=== PATIENT | female | born 1955 | race Caucasian/White ===

== ENCOUNTER 2016-08-27 11:46 | Outpatient (RCR) | payer BC ==
[2016-08-27 10:28] LABS: MEAN CORPUSCULAR HEMOGLOBIN 27.1 PG (26.0-34.0); MEAN CORPUSCULAR HGB CONC 32.3 g/dL (31.0-37.0); MEAN CORPUSCULAR VOLUME 84 FL (80-100); MEAN PLATELET VOLUME 8.6 FL (6.0-9.5); PLATELET COUNT 308 10^3uL (150-450); WHITE BLOOD COUNT 1.61 10^3uL (4.0-11.0)
[2016-08-27 10:35] LABS: BAND NEUTROPHILS % 0 % (0-6); LYMPHOCYTES # 0.6 #; MONOCYTES % 4 % (3-11); SEGMENTED NEUTROPHILS % 56 % (51-67)
[2016-08-27 10:36] LABS: EOSINOPHILS % 0 % (0-4); RBC MORPH NORMAL (NORMAL); TOTAL CELLS COUNTED 100
[2016-08-27 10:58] LABS: ALBUMIN 4.1 g/dL (3.4-5.0); ANION GAP 13.5 MEQ/L (3-15); CALCULATED IONIZED CALCIUM 4.1 mg/dL (3.8-4.6); MAGNESIUM* 2.3 mg/dL (1.6-2.3); TOTAL PROTEIN 7.9 g/dL (6.4-8.5)
[2016-08-30 09:15] LABS: MEAN CORPUSCULAR HGB CONC 31.9 g/dL (31.0-37.0); MEAN CORPUSCULAR VOLUME 84 FL (80-100); MEAN PLATELET VOLUME 8.6 FL (6.0-9.5); PLATELET COUNT 257 10^3uL (150-450)
[2016-08-30 10:33] LABS: MEAN CORPUSCULAR HEMOGLOBIN 26.7 PG (26.0-34.0); WHITE BLOOD COUNT 1.26 10^3uL (4.0-11.0)
[2016-08-30 10:34] LABS: BAND NEUTROPHILS % 4 % (0-6); EOSINOPHILS % 4 % (0-4); LYMPHOCYTES # 0.6 #; MONOCYTES # 0.1 #; MONOCYTES % 14 % (3-11); RBC MORPH NORMAL (NORMAL); SEGMENTED NEUTROPHILS % 32 % (51-67); TOTAL CELLS COUNTED 100
[2016-08-30 10:47] LABS: ALBUMIN 4.4 g/dL (3.4-5.0); ANION GAP 17.8 MEQ/L (3-15); CALCULATED IONIZED CALCIUM 4.2 mg/dL (3.8-4.6); TOTAL PROTEIN 8.4 g/dL (6.4-8.5)
[2016-09-03 09:29] LABS: MEAN CORPUSCULAR HGB CONC 31.8 g/dL (31.0-37.0); MEAN CORPUSCULAR VOLUME 84 FL (80-100); MEAN PLATELET VOLUME 8.7 FL (6.0-9.5); PLATELET COUNT 175 10^3uL (150-450)
[2016-09-03 09:37] LABS: ALBUMIN 4.4 g/dL (3.4-5.0); ANION GAP 14.6 MEQ/L (3-15); MAGNESIUM* 2.4 mg/dL (1.6-2.3); TOTAL PROTEIN 7.4 g/dL (6.4-8.5)
[2016-09-03 10:05] LABS: MEAN CORPUSCULAR HEMOGLOBIN 26.6 PG (26.0-34.0); WHITE BLOOD COUNT 1.21 10^3uL (4.0-11.0)
[2016-09-03 10:26] LABS: ANISOCYTOSIS SLIGHT; BAND NEUTROPHILS % 0 % (0-6); EOSINOPHILS % 2 % (0-4); LYMPHOCYTES # 0.6 #; MONOCYTES # 0.1 #; MONOCYTES % 10 % (3-11); RBC MORPH SEE REFERENCE (NORMAL); SEGMENTED NEUTROPHILS % 38 % (51-67); TOTAL CELLS COUNTED 100
[2016-09-06 08:39] LABS: MEAN CORPUSCULAR HEMOGLOBIN 27.2 PG (26.0-34.0); MEAN CORPUSCULAR HGB CONC 32.2 g/dL (31.0-37.0); MEAN CORPUSCULAR VOLUME 84 FL (80-100); MEAN PLATELET VOLUME 8.7 FL (6.0-9.5); PLATELET COUNT 185 10^3uL (150-450); WHITE BLOOD COUNT 1.97 10^3uL (4.0-11.0)
[2016-09-06 08:50] LABS: ALBUMIN 4.2 g/dL (3.4-5.0); ANION GAP 14.9 MEQ/L (3-15); CALCULATED IONIZED CALCIUM 4.1 mg/dL (3.8-4.6); MAGNESIUM* 2.1 mg/dL (1.6-2.3)
[2016-09-06 09:24] LABS: BAND NEUTROPHILS % 0 % (0-6); EOSINOPHILS % 3 % (0-4); LYMPHOCYTES # 0.7 #; MONOCYTES # 0.1 #; MONOCYTES % 13 % (3-11); RBC MORPH NORMAL (NORMAL); SEGMENTED NEUTROPHILS % 50 % (51-67); TOTAL CELLS COUNTED 100
[2016-09-10 09:32] LABS: MEAN CORPUSCULAR HEMOGLOBIN 27.5 PG (26.0-34.0); MEAN CORPUSCULAR HGB CONC 32.6 g/dL (31.0-37.0); MEAN CORPUSCULAR VOLUME 84 FL (80-100); MEAN PLATELET VOLUME 8.2 FL (6.0-9.5); PLATELET COUNT 329 10^3uL (150-450); WHITE BLOOD COUNT 2.43 10^3uL (4.0-11.0)
[2016-09-10 09:55] LABS: BAND NEUTROPHILS % 0 % (0-6); EOSINOPHILS % 1 % (0-4); LYMPHOCYTES # 0.8 #; MONOCYTES # 0.2 #; MONOCYTES % 10 % (3-11)
[2016-09-10 09:56] LABS: RBC MORPH NORMAL (NORMAL); SEGMENTED NEUTROPHILS % 56 % (51-67); TOTAL CELLS COUNTED 100
[2016-09-10 10:11] LABS: ANION GAP 14.7 MEQ/L (3-15); CALCULATED IONIZED CALCIUM 4.4 mg/dL (3.8-4.6); MAGNESIUM* 2.2 mg/dL (1.6-2.3); TOTAL PROTEIN 6.9 g/dL (6.4-8.5)
[2016-09-17 10:49] LABS: MEAN CORPUSCULAR HEMOGLOBIN 27.8 PG (26.0-34.0); MEAN CORPUSCULAR HGB CONC 32.7 g/dL (31.0-37.0); MEAN CORPUSCULAR VOLUME 85 FL (80-100); MEAN PLATELET VOLUME 8.5 FL (6.0-9.5); PLATELET COUNT 527 10^3uL (150-450)
[2016-09-17 11:05] LABS: BAND NEUTROPHILS % 0 % (0-6); EOSINOPHILS % 1 % (0-4); LYMPHOCYTES # 0.9 #; MONOCYTES # 0.6 #; MONOCYTES % 16 % (3-11); SEGMENTED NEUTROPHILS % 59 % (51-67)
[2016-09-17 11:06] LABS: ANISOCYTOSIS MODERATE; RBC MORPH SEE REFERENCE (NORMAL); TOTAL CELLS COUNTED 100
[2016-09-17 11:11] LABS: ALBUMIN 4.3 g/dL (3.4-5.0); ANION GAP 17.4 MEQ/L (3-15); CALCULATED IONIZED CALCIUM 4.2 mg/dL (3.8-4.6); MAGNESIUM* 2.2 mg/dL (1.6-2.3); TOTAL PROTEIN 7.3 g/dL (6.4-8.5)
[2016-09-20 08:56] LABS: MEAN CORPUSCULAR HEMOGLOBIN 27.3 PG (26.0-34.0); MEAN CORPUSCULAR HGB CONC 32.1 g/dL (31.0-37.0); MEAN CORPUSCULAR VOLUME 85 FL (80-100); MEAN PLATELET VOLUME 8.6 FL (6.0-9.5); PLATELET COUNT 546 10^3uL (150-450); WHITE BLOOD COUNT 4.12 10^3uL (4.0-11.0)
[2016-09-20 09:22] LABS: BAND NEUTROPHILS % 0 % (0-6); EOSINOPHILS % 0 % (0-4); LYMPHOCYTES # 0.8 #; MONOCYTES # 0.7 #; MONOCYTES % 18 % (3-11); RBC MORPH NORMAL (NORMAL); SEGMENTED NEUTROPHILS % 62 % (51-67); TOTAL CELLS COUNTED 100
[2016-09-20 09:26] LABS: ALBUMIN 4.3 g/dL (3.4-5.0); ANION GAP 15.9 MEQ/L (3-15); CALCULATED IONIZED CALCIUM 4.2 mg/dL (3.8-4.6); MAGNESIUM* 2.3 mg/dL (1.6-2.3); TOTAL PROTEIN 7.5 g/dL (6.4-8.5)
[2016-09-24 09:55] LABS: BASOPHILS % (AUTO) 1 % (0-2); EOSINOPHILS # (AUTO) 0.1 10^3uL; EOSINOPHILS % (AUTO) 1 % (0-4); LYMPHOCYTES # (AUTO) 0.8 X10^3; MEAN CORPUSCULAR HEMOGLOBIN 27.8 PG (26.0-34.0); MEAN CORPUSCULAR HGB CONC 32.6 g/dL (31.0-37.0); MEAN CORPUSCULAR VOLUME 85 FL (80-100); MEAN PLATELET VOLUME 8.9 FL (6.0-9.5); MONOCYTES # (AUTO) 0.3 X10^3; MONOCYTES % (AUTO) 9 % (3-11); NEUTROPHILS # (AUTO) 2.5 X10^3; NEUTROPHILS % (AUTO) 68 % (51-67); PLATELET COUNT 506 10^3uL (150-450); WHITE BLOOD COUNT 3.73 10^3uL (4.0-11.0)
[2016-09-24 10:13] LABS: ALBUMIN 4.1 g/dL (3.4-5.0); ANION GAP 13.1 MEQ/L (3-15); CALCULATED IONIZED CALCIUM 4.1 mg/dL (3.8-4.6); MAGNESIUM* 2.1 mg/dL (1.6-2.3); TOTAL PROTEIN 7.3 g/dL (6.4-8.5)
[2016-09-27 12:16] LABS: BASOPHILS % (AUTO) 2 % (0-2); EOSINOPHILS % (AUTO) 1 % (0-4); LYMPHOCYTES # (AUTO) 0.9 X10^3; MEAN CORPUSCULAR HEMOGLOBIN 27.6 PG (26.0-34.0); MEAN CORPUSCULAR HGB CONC 32.4 g/dL (31.0-37.0); MEAN CORPUSCULAR VOLUME 85 FL (80-100); MEAN PLATELET VOLUME 8.6 FL (6.0-9.5); MONOCYTES # (AUTO) 0.2 X10^3; MONOCYTES % (AUTO) 5 % (3-11); NEUTROPHILS # (AUTO) 2.1 X10^3; NEUTROPHILS % (AUTO) 65 % (51-67); PLATELET COUNT 541 10^3uL (150-450); WHITE BLOOD COUNT 3.23 10^3uL (4.0-11.0)
[2016-09-27 12:29] LABS: ALBUMIN 4.5 g/dL (3.4-5.0); ANION GAP 15.6 MEQ/L (3-15); CALCULATED IONIZED CALCIUM 4.2 mg/dL (3.8-4.6); MAGNESIUM* 2.1 mg/dL (1.6-2.3); TOTAL PROTEIN 7.8 g/dL (6.4-8.5)
[2016-10-01 10:50] LABS: ALBUMIN 4.3 g/dL (3.4-5.0); ANION GAP 14.8 MEQ/L (3-15); CALCULATED IONIZED CALCIUM 4.1 mg/dL (3.8-4.6); MAGNESIUM* 2.2 mg/dL (1.6-2.3); TOTAL PROTEIN 7.4 g/dL (6.4-8.5)
[2016-10-01 11:00] LABS: BASOPHILS % (AUTO) 1 % (0-2); EOSINOPHILS % (AUTO) 1 % (0-4); LYMPHOCYTES # (AUTO) 0.7 X10^3; MEAN CORPUSCULAR HEMOGLOBIN 27.3 PG (26.0-34.0); MEAN CORPUSCULAR HGB CONC 31.7 g/dL (31.0-37.0); MEAN CORPUSCULAR VOLUME 86 FL (80-100); MEAN PLATELET VOLUME 8.9 FL (6.0-9.5); MONOCYTES # (AUTO) 0.1 X10^3; MONOCYTES % (AUTO) 4 % (3-11); NEUTROPHILS # (AUTO) 1.9 X10^3; NEUTROPHILS % (AUTO) 67 % (51-67); PLATELET COUNT 431 10^3uL (150-450); WHITE BLOOD COUNT 2.81 10^3uL (4.0-11.0)
[2016-10-04 10:41] LABS: MEAN CORPUSCULAR HGB CONC 32.8 g/dL (31.0-37.0); MEAN CORPUSCULAR VOLUME 85 FL (80-100); MEAN PLATELET VOLUME 8.8 FL (6.0-9.5); PLATELET COUNT 344 10^3uL (150-450); WHITE BLOOD COUNT 1.95 10^3uL (4.0-11.0)
[2016-10-04 11:02] LABS: ALBUMIN 4.4 g/dL (3.4-5.0); ANION GAP 16.1 MEQ/L (3-15); CALCULATED IONIZED CALCIUM 4.1 mg/dL (3.8-4.6); MAGNESIUM* 2.1 mg/dL (1.6-2.3); TOTAL PROTEIN 7.7 g/dL (6.4-8.5)
[2016-10-04 11:27] LABS: BAND NEUTROPHILS % 1 % (0-6); EOSINOPHILS % 1 % (0-4); LYMPHOCYTES # 0.8 #; MONOCYTES # 0.1 #; MONOCYTES % 5 % (3-11); SEGMENTED NEUTROPHILS % 49 % (51-67); TOTAL CELLS COUNTED 100
[2016-10-04 11:28] LABS: ANISOCYTOSIS SLIGHT; RBC MORPH SEE REFERENCE (NORMAL); STOMATOCYTES SLIGHT
[2016-10-08 10:55] LABS: MEAN CORPUSCULAR HEMOGLOBIN 28.2 PG (26.0-34.0); MEAN CORPUSCULAR HGB CONC 33.1 g/dL (31.0-37.0); MEAN CORPUSCULAR VOLUME 85 FL (80-100); MEAN PLATELET VOLUME 8.3 FL (6.0-9.5); PLATELET COUNT 216 10^3uL (150-450); WHITE BLOOD COUNT 1.84 10^3uL (4.0-11.0)
[2016-10-08 11:03] LABS: BAND NEUTROPHILS % 1 % (0-6); EOSINOPHILS % 0 % (0-4); LYMPHOCYTES # 0.9 #; MONOCYTES % 4 % (3-11); RBC MORPH NORMAL (NORMAL); SEGMENTED NEUTROPHILS % 42 % (51-67); TOTAL CELLS COUNTED 100
[2016-10-08 11:28] LABS: ALBUMIN 4.6 g/dL (3.4-5.0); ANION GAP 16.2 MEQ/L (3-15); CALCULATED IONIZED CALCIUM 3.9 mg/dL (3.8-4.6); MAGNESIUM* 2.3 mg/dL (1.6-2.3); TOTAL PROTEIN 8.4 g/dL (6.4-8.5)
[2016-10-15 08:56] LABS: MEAN CORPUSCULAR HGB CONC 32.6 g/dL (31.0-37.0); MEAN CORPUSCULAR VOLUME 86 FL (80-100); MEAN PLATELET VOLUME 8.2 FL (6.0-9.5); PLATELET COUNT 214 10^3uL (150-450); WHITE BLOOD COUNT 2.25 10^3uL (4.0-11.0)
[2016-10-15 09:07] LABS: ALBUMIN 4.3 g/dL (3.4-5.0); ANION GAP 16.1 MEQ/L (3-15); CALCULATED IONIZED CALCIUM 3.9 mg/dL (3.8-4.6); MAGNESIUM* 2.3 mg/dL (1.6-2.3); TOTAL PROTEIN 7.8 g/dL (6.4-8.5)
[2016-10-15 09:11] LABS: ANISOCYTOSIS SLIGHT; BAND NEUTROPHILS % 0 % (0-6); EOSINOPHILS % 1 % (0-4); LYMPHOCYTES # 0.7 #; MONOCYTES # 0.3 #; MONOCYTES % 15 % (3-11); RBC MORPH SEE REFERENCE (NORMAL); SEGMENTED NEUTROPHILS % 51 % (51-67); TOTAL CELLS COUNTED 100
[2016-10-22 12:09] LABS: BASOPHILS % (AUTO) 1 % (0-2); EOSINOPHILS % (AUTO) 1 % (0-4); LYMPHOCYTES # (AUTO) 0.9 X10^3; MEAN CORPUSCULAR HEMOGLOBIN 28.1 PG (26.0-34.0); MEAN CORPUSCULAR HGB CONC 32.6 g/dL (31.0-37.0); MEAN CORPUSCULAR VOLUME 86 FL (80-100); MEAN PLATELET VOLUME 8.4 FL (6.0-9.5); MONOCYTES # (AUTO) 0.3 X10^3; MONOCYTES % (AUTO) 9 % (3-11); NEUTROPHILS # (AUTO) 1.7 X10^3; NEUTROPHILS % (AUTO) 57 % (51-67); PLATELET COUNT 438 10^3uL (150-450); WHITE BLOOD COUNT 2.91 10^3uL (4.0-11.0)
[2016-10-22 12:50] LABS: ALBUMIN 4.1 g/dL (3.4-5.0); ANION GAP 15.7 MEQ/L (3-15); CALCULATED IONIZED CALCIUM 4.1 mg/dL (3.8-4.6); TOTAL PROTEIN 7.9 g/dL (6.4-8.5)
[2016-10-25 09:54] LABS: BASOPHILS % (AUTO) 2 % (0-2); EOSINOPHILS % (AUTO) 1 % (0-4); LYMPHOCYTES # (AUTO) 0.7 X10^3; MEAN CORPUSCULAR HEMOGLOBIN 28.5 PG (26.0-34.0); MEAN CORPUSCULAR HGB CONC 32.8 g/dL (31.0-37.0); MEAN CORPUSCULAR VOLUME 87 FL (80-100); MEAN PLATELET VOLUME 8.4 FL (6.0-9.5); MONOCYTES # (AUTO) 0.2 X10^3; MONOCYTES % (AUTO) 6 % (3-11); NEUTROPHILS # (AUTO) 1.8 X10^3; NEUTROPHILS % (AUTO) 65 % (51-67); PLATELET COUNT 560 10^3uL (150-450); WHITE BLOOD COUNT 2.77 10^3uL (4.0-11.0)
[2016-10-25 10:11] LABS: ALBUMIN 4.4 g/dL (3.4-5.0); CALCULATED IONIZED CALCIUM 4.3 mg/dL (3.8-4.6); MAGNESIUM* 2.1 mg/dL (1.6-2.3); TOTAL PROTEIN 8.3 g/dL (6.4-8.5)
[2016-10-29 11:35] LABS: BASOPHILS % (AUTO) 1 % (0-2); EOSINOPHILS % (AUTO) 1 % (0-4); LYMPHOCYTES # (AUTO) 0.6 X10^3; MEAN CORPUSCULAR HEMOGLOBIN 28.6 PG (26.0-34.0); MEAN CORPUSCULAR HGB CONC 32.8 g/dL (31.0-37.0); MEAN CORPUSCULAR VOLUME 87 FL (80-100); MEAN PLATELET VOLUME 8.4 FL (6.0-9.5); MONOCYTES # (AUTO) 0.2 X10^3; MONOCYTES % (AUTO) 5 % (3-11); NEUTROPHILS # (AUTO) 2.5 X10^3; NEUTROPHILS % (AUTO) 74 % (51-67); PLATELET COUNT 519 10^3uL (150-450); WHITE BLOOD COUNT 3.37 10^3uL (4.0-11.0)
[2016-10-29 11:54] LABS: ALBUMIN 4.2 g/dL (3.4-5.0); ANION GAP 14.8 MEQ/L (3-15); CALCULATED IONIZED CALCIUM 3.9 mg/dL (3.8-4.6); MAGNESIUM* 2.3 mg/dL (1.6-2.3); TOTAL PROTEIN 7.8 g/dL (6.4-8.5)
[2016-11-01 11:05] LABS: ALBUMIN 4.2 g/dL (3.4-5.0); ANION GAP 14.8 MEQ/L (3-15); CALCULATED IONIZED CALCIUM 4.3 mg/dL (3.8-4.6); MAGNESIUM* 2.2 mg/dL (1.6-2.3); TOTAL PROTEIN 7.6 g/dL (6.4-8.5)
[2016-11-01 12:46] LABS: MEAN CORPUSCULAR HEMOGLOBIN 28.9 PG (26.0-34.0); MEAN CORPUSCULAR HGB CONC 32.8 g/dL (31.0-37.0); MEAN CORPUSCULAR VOLUME 88 FL (80-100); PLATELET COUNT 493 10^3uL (150-450); WHITE BLOOD COUNT 2.14 10^3uL (4.0-11.0)
[2016-11-01 13:08] LABS: BAND NEUTROPHILS % 0 % (0-6); EOSINOPHILS % 2 % (0-4); LYMPHOCYTES # 0.8 #; MONOCYTES # 0.1 #; MONOCYTES % 6 % (3-11); SEGMENTED NEUTROPHILS % 54 % (51-67); TOTAL CELLS COUNTED 100
[2016-11-01 13:09] LABS: ANISOCYTOSIS SLIGHT; RBC MORPH SEE REFERENCE (NORMAL)
[2016-11-05 14:17] LABS: MEAN CORPUSCULAR HEMOGLOBIN 28.8 PG (26.0-34.0); MEAN CORPUSCULAR HGB CONC 33.1 g/dL (31.0-37.0); MEAN CORPUSCULAR VOLUME 87 FL (80-100); MEAN PLATELET VOLUME 8.2 FL (6.0-9.5); PLATELET COUNT 321 10^3uL (150-450); WHITE BLOOD COUNT 2.05 10^3uL (4.0-11.0)
[2016-11-05 14:34] LABS: ANISOCYTOSIS SLIGHT; BAND NEUTROPHILS % 0 % (0-6); EOSINOPHILS % 0 % (0-4); LYMPHOCYTES # 0.9 #; MONOCYTES # 0.2 #; MONOCYTES % 8 % (3-11); RBC MORPH SEE REFERENCE (NORMAL); SEGMENTED NEUTROPHILS % 48 % (51-67); TOTAL CELLS COUNTED 100
[2016-11-05 14:42] LABS: ALBUMIN 4.1 g/dL (3.4-5.0); ANION GAP 17.1 MEQ/L (3-15); CALCULATED IONIZED CALCIUM 4.3 mg/dL (3.8-4.6); MAGNESIUM* 1.9 mg/dL (1.6-2.3); TOTAL PROTEIN 7.5 g/dL (6.4-8.5)
[2016-11-19 10:14] LABS: MEAN CORPUSCULAR HEMOGLOBIN 29.8 PG (26.0-34.0); MEAN CORPUSCULAR HGB CONC 33.5 g/dL (31.0-37.0); MEAN CORPUSCULAR VOLUME 89 FL (80-100); MEAN PLATELET VOLUME 8.5 FL (6.0-9.5); PLATELET COUNT 358 10^3uL (150-450); WHITE BLOOD COUNT 3.52 10^3uL (4.0-11.0)
[2016-11-19 10:24] LABS: ALBUMIN 3.9 g/dL (3.4-5.0); ANION GAP 11.5 MEQ/L (3-15); CALCULATED IONIZED CALCIUM 3.7 mg/dL (3.8-4.6); MAGNESIUM* 2.3 mg/dL (1.6-2.3); TOTAL PROTEIN 7.4 g/dL (6.4-8.5)
[2016-11-19 10:40] LABS: BAND NEUTROPHILS % 0 % (0-6); EOSINOPHILS % 2 % (0-4); LYMPHOCYTES # 0.8 #; MONOCYTES # 0.3 #; MONOCYTES % 11 % (3-11); RBC MORPH NORMAL (NORMAL); SEGMENTED NEUTROPHILS % 64 % (51-67); TOTAL CELLS COUNTED 100
== END 2016-11-25 | disposition home or self-care (01) ==
LOC: EDSTATUS 11:46 → LAB 11:46
PROVIDERS: ATTEND Internal Medicine Hematology & Oncology
DX: C50.911 Malignant neoplasm of unspecified site of right female breast (principal); C77.0 Secondary and unspecified malignant neoplasm of lymph nodes of head, face and neck; C77.3 Secondary and unspecified malignant neoplasm of axilla and upper limb lymph nodes; C79.51 Secondary malignant neoplasm of bone
CPT/HCPCS: 36415; 80053; 83615; 83735; 85025

== ENCOUNTER → 2016-10-12 | Outpatient (CLI) | payer BC ==
[~2016-10-12] MED LIST: ASCO10006 PO; ESTR10TA VG; LETR2.5T PO; LISI1TAB17 PO; MULT-954 PO; ZOLE4VIA IV
--- NOTE | 2016-10-12 10:05 | Diagnostic Imaging Report ---
INDICATION: Breast cancer. TECHNIQUE: CT of the chest, abdomen and pelvis obtained with post IV contrast study of the chest, pre-and post IV contrast studies of the abdomen, and post IV contrast study of the pelvis. Comparison made with 06/11/[address] and 04/09/2016. CT CHEST FINDINGS: There are no enlarged mediastinal or hilar lymph nodes. There are no enlarged axillary nodes or chest wall masses. There is no pleural or pericardial fluid. Lung parenchymal windows demonstrate some linear scarring in the left upper lobe. There is some mild linear scarring in the right middle lobe. The soft tissue density in the right middle lobe described on 04/09/2016 which was essentially resolved on 06/11/2016 has not recurred. Sclerotic changes in the thoracic spine which appear similar to the prior study and are compatible with bony metastatic disease. CT ABDOMEN AND PELVIS FINDINGS: The liver shows multiple scattered hypodense lesions which are probably cysts, the largest lesion in the left lobe of the liver is a cyst, the other lesions are too small to characterize but do not appear changed. The spleen, adrenals, and pancreas are normal. The kidneys bilaterally are unremarkable. There is no retroperitoneal mass or adenopathy. There is no ascites or abnormal fluid collection. Visualized bowel loops are unremarkable. There is no pelvic soft tissue mass or free fluid. Mixed sclerotic and lytic changes in the bony pelvis are again noted and similar to the prior study, compatible with bony metastatic disease. These findings are most prominent in the right iliac bone medially. There are however new areas of sclerotic change in the lumbar vertebrae which were not present on the previous study and may represent new bony lesions. IMPRESSION: 1. CT chest demonstrates some parenchymal scarring in the lingula and right middle lobe with no new pulmonary parenchymal lesion or adenopathy. There are some sclerotic changes in the thoracic spine compatible with known bony metastatic disease. 2. CT of the abdomen and pelvis demonstrates no soft tissue mass or adenopathy. There are probable cysts in the liver which are unchanged. There are sclerotic bony lesions in the pelvis. There are sclerotic changes in the lumbar spine which were not definitely present on the prior study and may represent new metastatic disease. Consider correlation with followup bone scan. Dictated by: Dictated on workstation # [id number]
== END ==
LOC: RAD 06:54
PROVIDERS: ATTEND Internal Medicine Hematology & Oncology
DX: C50.911 Malignant neoplasm of unspecified site of right female breast (principal); C77.0 Secondary and unspecified malignant neoplasm of lymph nodes of head, face and neck; C77.3 Secondary and unspecified malignant neoplasm of axilla and upper limb lymph nodes; C79.51 Secondary malignant neoplasm of bone
CPT/HCPCS: 71260; 74178; Q9967

== ENCOUNTER → 2016-10-15 | Outpatient (CLI) | payer BC ==
--- NOTE | 2016-10-15 18:56 | Diagnostic Imaging Report ---
INDICATION: Breast cancer. COMPARISON: 04/10/2016. TECHNIQUE: Following the intravenous administration of 26.7 mCi 99m-technetium MDP, anterior and posterior whole body scintigraphic images are obtained. FINDINGS: Calvarium: Negative. Thorax: New area of increased uptake is visible at the right sternoclavicular junction. New areas of abnormal rib uptake are present bilaterally involving the posterior ribs. Spine: Previously, two areas of uptake were visible in the thoracic spine. On today's exam, there are multiple areas of abnormal activity. There is also an abnormal area of activity in the lower cervical spine. Pelvis: Previously, increased uptake was noted along the right iliac bone and sacroiliac joint. This is unchanged. New areas of increased focal activity are visible involving the left iliac bone and probably both sacrum medially. Extremities: Stable uptake is visible involving the distal left femoral diaphysis. IMPRESSION: 1. New areas of active osseous metastasis in the spine, ribs, and pelvic bones. A new area is also noted in the right sternoclavicular joint region, that may be metastatic rather than degenerative. 2. Stable uptake in the distal left femur. Dictated by: Dictated on workstation # [id number]
== END ==
LOC: RAD 08:21
PROVIDERS: ATTEND Internal Medicine Hematology & Oncology
DX: C77.0 Secondary and unspecified malignant neoplasm of lymph nodes of head, face and neck (principal); C77.3 Secondary and unspecified malignant neoplasm of axilla and upper limb lymph nodes; C79.51 Secondary malignant neoplasm of bone; C50.212 Malignant neoplasm of upper-inner quadrant of left female breast; C50.911 Malignant neoplasm of unspecified site of right female breast
CPT/HCPCS: 78306; A9503

== ENCOUNTER → 2016-10-30 | Outpatient (CLI) | payer BC | LOC: RAD 13:42 | PROVIDERS: ATTEND Internal Medicine Hematology & Oncology | DX: C50.911 Malignant neoplasm of unspecified site of right female breast (principal); C79.51 Secondary malignant neoplasm of bone | CPT/HCPCS: 72157; A9579 ==

== ENCOUNTER → 2016-11-02 | Outpatient (CLI) | payer BC | LOC: RAD 06:57 | PROVIDERS: ATTEND Internal Medicine Hematology & Oncology | DX: C50.911 Malignant neoplasm of unspecified site of right female breast (principal); C79.51 Secondary malignant neoplasm of bone | CPT/HCPCS: 72158; A9579 ==

== ENCOUNTER → 2016-11-05 | Outpatient (CLI) | payer BC | LOC: RAD 15:22 | PROVIDERS: ATTEND Internal Medicine Hematology & Oncology | DX: C50.911 Malignant neoplasm of unspecified site of right female breast (principal); C79.51 Secondary malignant neoplasm of bone | CPT/HCPCS: 72197; A9579 ==

== ENCOUNTER 2016-11-26 11:09 | Outpatient (RCR) | payer BC ==
[2016-11-26 11:23] LABS: MEAN CORPUSCULAR HEMOGLOBIN 29.6 PG (26.0-34.0); MEAN CORPUSCULAR HGB CONC 33.2 g/dL (31.0-37.0); MEAN CORPUSCULAR VOLUME 89 FL (80-100); MEAN PLATELET VOLUME 8.4 FL (6.0-9.5); PLATELET COUNT 603 10^3uL (150-450); WHITE BLOOD COUNT 5.94 10^3uL (4.0-11.0)
[2016-11-26 11:37] LABS: ANISOCYTOSIS SLIGHT; BAND NEUTROPHILS % 1 % (0-6); EOSINOPHILS % 1 % (0-4); MONOCYTES # 0.7 #; MONOCYTES % 14 % (3-11); RBC MORPH SEE REFERENCE (NORMAL); SEGMENTED NEUTROPHILS % 66 % (51-67); TOTAL CELLS COUNTED 100
[2016-11-26 11:44] LABS: ALBUMIN 3.8 g/dL (3.4-5.0); ANION GAP 14.1 MEQ/L (3-15); CALCULATED IONIZED CALCIUM 4.2 mg/dL (3.8-4.6); TOTAL PROTEIN 7.1 g/dL (6.4-8.5)
[2016-11-29 10:32] LABS: BASOPHILS % (AUTO) 1 % (0-2); EOSINOPHILS % (AUTO) 1 % (0-4); LYMPHOCYTES # (AUTO) 0.9 X10^3; MEAN CORPUSCULAR HEMOGLOBIN 29.6 PG (26.0-34.0); MEAN CORPUSCULAR HGB CONC 33.1 g/dL (31.0-37.0); MEAN CORPUSCULAR VOLUME 90 FL (80-100); MEAN PLATELET VOLUME 8.7 FL (6.0-9.5); MONOCYTES # (AUTO) 0.3 X10^3; MONOCYTES % (AUTO) 7 % (3-11); NEUTROPHILS # (AUTO) 2.6 X10^3; NEUTROPHILS % (AUTO) 67 % (51-67); WHITE BLOOD COUNT 3.89 10^3uL (4.0-11.0)
[2016-11-29 10:42] LABS: ALBUMIN 4.2 g/dL (3.4-5.0); ANION GAP 15.9 MEQ/L (3-15); CALCULATED IONIZED CALCIUM 3.7 mg/dL (3.8-4.6); TOTAL PROTEIN 8.1 g/dL (6.4-8.5)
[2016-11-29 11:00] LABS: PLATELET COUNT 677 10^3uL (150-450)
[2016-12-03 11:20] LABS: BASOPHILS % (AUTO) 1 % (0-2); EOSINOPHILS # (AUTO) 0.1 10^3uL; EOSINOPHILS % (AUTO) 1 % (0-4); LYMPHOCYTES # (AUTO) 1.4 X10^3; MEAN CORPUSCULAR HEMOGLOBIN 29.9 PG (26.0-34.0); MEAN CORPUSCULAR HGB CONC 33.3 g/dL (31.0-37.0); MEAN CORPUSCULAR VOLUME 90 FL (80-100); MEAN PLATELET VOLUME 8.6 FL (6.0-9.5); MONOCYTES # (AUTO) 0.6 X10^3; MONOCYTES % (AUTO) 9 % (3-11); NEUTROPHILS % (AUTO) 63 % (51-67); PLATELET COUNT 646 10^3uL (150-450); WHITE BLOOD COUNT 6.41 10^3uL (4.0-11.0)
[2016-12-03 11:46] LABS: ALBUMIN 4.2 g/dL (3.4-5.0); ANION GAP 17.4 MEQ/L (3-15); CALCULATED IONIZED CALCIUM 4.1 mg/dL (3.8-4.6); TOTAL PROTEIN 7.4 g/dL (6.4-8.5)
[2016-12-10 10:46] LABS: BASOPHILS % (AUTO) 0 % (0-2); EOSINOPHILS # (AUTO) 0.1 10^3uL; EOSINOPHILS % (AUTO) 2 % (0-4); LYMPHOCYTES # (AUTO) 1.1 X10^3; MEAN CORPUSCULAR HEMOGLOBIN 29.1 PG (26.0-34.0); MEAN CORPUSCULAR HGB CONC 31.8 g/dL (31.0-37.0); MEAN CORPUSCULAR VOLUME 91 FL (80-100); MEAN PLATELET VOLUME 8.6 FL (6.0-9.5); MONOCYTES # (AUTO) 0.3 X10^3; MONOCYTES % (AUTO) 6 % (3-11); NEUTROPHILS % (AUTO) 67 % (51-67); PLATELET COUNT 399 10^3uL (150-450); WHITE BLOOD COUNT 4.48 10^3uL (4.0-11.0)
[2016-12-10 11:13] LABS: ALBUMIN 4.1 g/dL (3.4-5.0); ANION GAP 13.2 MEQ/L (3-15); TOTAL PROTEIN 7.7 g/dL (6.4-8.5)
[2016-12-14 09:51] LABS: BASOPHILS % (AUTO) 1 % (0-2); EOSINOPHILS # (AUTO) 0.1 10^3uL; EOSINOPHILS % (AUTO) 3 % (0-4); LYMPHOCYTES # (AUTO) 1.2 X10^3; MEAN CORPUSCULAR HEMOGLOBIN 29.2 PG (26.0-34.0); MEAN CORPUSCULAR VOLUME 92 FL (80-100); MEAN PLATELET VOLUME 8.7 FL (6.0-9.5); MONOCYTES # (AUTO) 0.4 X10^3; MONOCYTES % (AUTO) 11 % (3-11); NEUTROPHILS # (AUTO) 1.9 X10^3; NEUTROPHILS % (AUTO) 53 % (51-67); PLATELET COUNT 345 10^3uL (150-450); WHITE BLOOD COUNT 3.57 10^3uL (4.0-11.0)
[2016-12-14 09:52] LABS: MEAN CORPUSCULAR HGB CONC 31.6 g/dL (31.0-37.0)
[2016-12-14 10:16] LABS: ANION GAP 13.9 MEQ/L (3-15); TOTAL PROTEIN 7.2 g/dL (6.4-8.5)
[2016-12-24 10:43] LABS: BASOPHILS % (AUTO) 1 % (0-2); EOSINOPHILS # (AUTO) 0.1 10^3uL; EOSINOPHILS % (AUTO) 2 % (0-4); LYMPHOCYTES # (AUTO) 0.8 X10^3; MEAN CORPUSCULAR HEMOGLOBIN 29.7 PG (26.0-34.0); MEAN CORPUSCULAR VOLUME 95 FL (80-100); MEAN PLATELET VOLUME 9.1 FL (6.0-9.5); MONOCYTES # (AUTO) 0.3 X10^3; MONOCYTES % (AUTO) 9 % (3-11); NEUTROPHILS # (AUTO) 2.4 X10^3; NEUTROPHILS % (AUTO) 65 % (51-67); PLATELET COUNT 184 10^3uL (150-450); WHITE BLOOD COUNT 3.64 10^3uL (4.0-11.0)
[2016-12-24 10:44] LABS: MEAN CORPUSCULAR HGB CONC 31.4 g/dL (31.0-37.0)
[2016-12-24 11:12] LABS: ANION GAP 12.1 MEQ/L (3-15); CALCULATED IONIZED CALCIUM 3.9 mg/dL (3.8-4.6); TOTAL PROTEIN 6.9 g/dL (6.4-8.5)
[2016-12-27 09:15] LABS: BASOPHILS % (AUTO) 1 % (0-2); EOSINOPHILS # (AUTO) 0.1 10^3uL; EOSINOPHILS % (AUTO) 3 % (0-4); LYMPHOCYTES # (AUTO) 1.1 X10^3; MEAN CORPUSCULAR HEMOGLOBIN 30.5 PG (26.0-34.0); MEAN CORPUSCULAR HGB CONC 32.2 g/dL (31.0-37.0); MEAN CORPUSCULAR VOLUME 95 FL (80-100); MEAN PLATELET VOLUME 9.4 FL (6.0-9.5); MONOCYTES # (AUTO) 0.4 X10^3; MONOCYTES % (AUTO) 11 % (3-11); NEUTROPHILS # (AUTO) 2.1 X10^3; NEUTROPHILS % (AUTO) 57 % (51-67); PLATELET COUNT 200 10^3uL (150-450); WHITE BLOOD COUNT 3.76 10^3uL (4.0-11.0)
[2016-12-27 09:26] LABS: ALBUMIN 4.3 g/dL (3.4-5.0); ANION GAP 12.2 MEQ/L (3-15); CALCULATED IONIZED CALCIUM 3.9 mg/dL (3.8-4.6); TOTAL PROTEIN 7.8 g/dL (6.4-8.5)
[2016-12-31 11:11] LABS: BASOPHILS % (AUTO) 1 % (0-2); EOSINOPHILS # (AUTO) 0.1 10^3uL; EOSINOPHILS % (AUTO) 2 % (0-4); LYMPHOCYTES # (AUTO) 1.1 X10^3; MEAN CORPUSCULAR HEMOGLOBIN 30.5 PG (26.0-34.0); MEAN CORPUSCULAR VOLUME 96 FL (80-100); MEAN PLATELET VOLUME 8.9 FL (6.0-9.5); MONOCYTES # (AUTO) 0.5 X10^3; MONOCYTES % (AUTO) 12 % (3-11); NEUTROPHILS # (AUTO) 2.3 X10^3; NEUTROPHILS % (AUTO) 57 % (51-67); PLATELET COUNT 281 10^3uL (150-450); WHITE BLOOD COUNT 3.99 10^3uL (4.0-11.0)
[2016-12-31 11:35] LABS: ALBUMIN 4.3 g/dL (3.4-5.0); ANION GAP 17.1 MEQ/L (3-15); CALCULATED IONIZED CALCIUM 3.8 mg/dL (3.8-4.6); TOTAL PROTEIN 7.4 g/dL (6.4-8.5)
[2017-01-07 10:35] LABS: BASOPHILS % (AUTO) 1 % (0-2); EOSINOPHILS # (AUTO) 0.1 10^3uL; EOSINOPHILS % (AUTO) 2 % (0-4); LYMPHOCYTES # (AUTO) 0.9 X10^3; MEAN CORPUSCULAR HEMOGLOBIN 30.8 PG (26.0-34.0); MEAN CORPUSCULAR HGB CONC 32.5 g/dL (31.0-37.0); MEAN CORPUSCULAR VOLUME 95 FL (80-100); MEAN PLATELET VOLUME 8.8 FL (6.0-9.5); MONOCYTES # (AUTO) 0.5 X10^3; MONOCYTES % (AUTO) 15 % (3-11); NEUTROPHILS # (AUTO) 1.6 X10^3; NEUTROPHILS % (AUTO) 52 % (51-67); PLATELET COUNT 301 10^3uL (150-450)
[2017-01-07 10:48] LABS: ALBUMIN 4.4 g/dL (3.4-5.0); ANION GAP 14.6 MEQ/L (3-15); CALCULATED IONIZED CALCIUM 4.1 mg/dL (3.8-4.6); TOTAL PROTEIN 7.5 g/dL (6.4-8.5)
[2017-01-16 10:12] LABS: BASOPHILS % (AUTO) 0 % (0-2); EOSINOPHILS # (AUTO) 0.1 10^3uL; EOSINOPHILS % (AUTO) 2 % (0-4); LYMPHOCYTES # (AUTO) 1.1 X10^3; MEAN CORPUSCULAR HEMOGLOBIN 30.8 PG (26.0-34.0); MEAN CORPUSCULAR HGB CONC 32.6 g/dL (31.0-37.0); MEAN CORPUSCULAR VOLUME 95 FL (80-100); MEAN PLATELET VOLUME 9.1 FL (6.0-9.5); MONOCYTES # (AUTO) 0.3 X10^3; MONOCYTES % (AUTO) 9 % (3-11); NEUTROPHILS # (AUTO) 2.2 X10^3; NEUTROPHILS % (AUTO) 59 % (51-67); PLATELET COUNT 290 10^3uL (150-450); WHITE BLOOD COUNT 3.69 10^3uL (4.0-11.0)
[2017-01-16 10:31] LABS: ALBUMIN 4.4 g/dL (3.4-5.0); ANION GAP 15.5 MEQ/L (3-15); CALCULATED IONIZED CALCIUM 3.8 mg/dL (3.8-4.6); TOTAL PROTEIN 7.7 g/dL (6.4-8.5)
[2017-01-28 10:41] LABS: BASOPHILS % (AUTO) 1 % (0-2); EOSINOPHILS # (AUTO) 0.1 10^3uL; EOSINOPHILS % (AUTO) 2 % (0-4); LYMPHOCYTES # (AUTO) 1.1 X10^3; MEAN CORPUSCULAR HEMOGLOBIN 30.2 PG (26.0-34.0); MEAN CORPUSCULAR VOLUME 95 FL (80-100); MEAN PLATELET VOLUME 9.1 FL (6.0-9.5); MONOCYTES # (AUTO) 0.3 X10^3; MONOCYTES % (AUTO) 10 % (3-11); NEUTROPHILS # (AUTO) 1.6 X10^3; NEUTROPHILS % (AUTO) 53 % (51-67); PLATELET COUNT 279 10^3uL (150-450); WHITE BLOOD COUNT 3.11 10^3uL (4.0-11.0)
[2017-01-28 10:47] LABS: MEAN CORPUSCULAR HGB CONC 31.7 g/dL (31.0-37.0)
[2017-01-28 10:48] LABS: ALBUMIN 4.2 g/dL (3.4-5.0); ANION GAP 12.7 MEQ/L (3-15); CALCULATED IONIZED CALCIUM 4.1 mg/dL (3.8-4.6); TOTAL PROTEIN 7.3 g/dL (6.4-8.5)
[2017-02-12 09:00] LABS: BASOPHILS % (AUTO) 0 % (0-2); EOSINOPHILS # (AUTO) 0.1 10^3uL; EOSINOPHILS % (AUTO) 2 % (0-4); MEAN CORPUSCULAR HEMOGLOBIN 30.4 PG (26.0-34.0); MEAN CORPUSCULAR VOLUME 95 FL (80-100); MONOCYTES # (AUTO) 0.4 X10^3; MONOCYTES % (AUTO) 9 % (3-11); NEUTROPHILS # (AUTO) 2.6 X10^3; NEUTROPHILS % (AUTO) 65 % (51-67); PLATELET COUNT 290 10^3uL (150-450); WHITE BLOOD COUNT 4.04 10^3uL (4.0-11.0)
[2017-02-12 09:22] LABS: ALBUMIN 4.6 g/dL (3.4-5.0); ANION GAP 15.6 MEQ/L (3-15); CALCULATED IONIZED CALCIUM 4.3 mg/dL (3.8-4.6); TOTAL PROTEIN 7.9 g/dL (6.4-8.5)
[2017-02-18 10:19] LABS: BASOPHILS % (AUTO) 1 % (0-2); EOSINOPHILS % (AUTO) 0 % (0-4); MEAN CORPUSCULAR HEMOGLOBIN 31.2 PG (26.0-34.0); MEAN CORPUSCULAR HGB CONC 33.3 g/dL (31.0-37.0); MEAN CORPUSCULAR VOLUME 94 FL (80-100); MEAN PLATELET VOLUME 9.1 FL (6.0-9.5); MONOCYTES # (AUTO) 0.5 X10^3; MONOCYTES % (AUTO) 15 % (3-11); NEUTROPHILS # (AUTO) 2.1 X10^3; NEUTROPHILS % (AUTO) 57 % (51-67); PLATELET COUNT 266 10^3uL (150-450); WHITE BLOOD COUNT 3.64 10^3uL (4.0-11.0)
[2017-02-18 11:01] LABS: ALBUMIN 4.3 g/dL (3.4-5.0); ANION GAP 12.4 MEQ/L (3-15); CALCULATED IONIZED CALCIUM 3.8 mg/dL (3.8-4.6); TOTAL PROTEIN 7.6 g/dL (6.4-8.5)
== END 2017-02-24 | disposition home or self-care (01) ==
LOC: LAB 11:09
PROVIDERS: ATTEND Internal Medicine Hematology & Oncology
DX: C50.911 Malignant neoplasm of unspecified site of right female breast (principal); C77.0 Secondary and unspecified malignant neoplasm of lymph nodes of head, face and neck; C77.3 Secondary and unspecified malignant neoplasm of axilla and upper limb lymph nodes; C79.51 Secondary malignant neoplasm of bone
CPT/HCPCS: 36415; 80053; 83615; 83735; 85025

== ENCOUNTER → 2017-02-01 | Outpatient (CLI) | payer BC ==
--- NOTE | 2017-02-01 10:52 | Diagnostic Imaging Report ---
CLINICAL INDICATION: Patient with secondary malignant neoplasm of bone. Patient has history of breast cancer. EXAM: Axial CT scan of the neck soft tissue performed without IV contrast. COMPARISON: MRI of the cervical spine performed with contrast dated 11/22/2015. Thyroid ultrasound dated 03/03/2014. FINDINGS: There is a partially calcified nodule in the right thyroid gland which measures at least 13 mm. This was also seen on comparison ultrasound of the thyroid gland. The neck soft tissue structures show no significant abnormality. There is dental streak artifact which obscures portions of the neck soft tissue and oral cavity. There is no neck lymphadenopathy. There is mild prominence of the right piriform sinus with no mass seen. Otherwise, the nasopharynx, oropharynx, hypopharynx, and laryngeal structures are relatively symmetric with no abnormality. The salivary glands are unremarkable. The remainder of the neck soft tissue structures show no significant abnormality. Limited visualization of the intracranial structures and orbits are unremarkable. Visualized upper lobes are clear. There is mild bilateral apical pleural-parenchymal scarring. There is sclerotic lesions seen scattered throughout the cervical and visualized upper thoracic spine, and sternum, likely related to patient's history of breast cancer with osseous involvement. There is cervical spine degenerative disease. IMPRESSION: 1: There are sclerotic lesions involving the cervical spine and sternum likely related to patient's history of breast cancer with osseous involvement. 2: There is no other significant abnormality involving the neck CT scan for the patient's age. Dictated by: Dictated on workstation # [id number]
--- NOTE | 2017-02-01 11:33 | Diagnostic Imaging Report ---
PROCEDURE: MR imaging cervical spine with and without contrast. TECHNIQUE: Multiplanar and multisequence MRI of the cervical spine was performed with and without contrast. INDICATION: History of breast cancer with metastatic disease to the bone. COMPARISON: 11/22/2015. FINDINGS: Static alignment of the cervical spine is maintained. There is no significant anteroretrolisthesis. There is no evidence of jumped facets. Vertebral body heights are preserved. There is no evidence of acute fracture. Evaluation of marrow signal, however does demonstrate interval development of diffuse heterogeneity. Postcontrast images show concordant areas of abnormal enhancement scattered throughout the cervical spine. Findings are consistent with metastatic disease. There are multilevel degenerative changes consisting of intervertebral disc height loss with anterior and posterior disc bulges. There is also multilevel facet arthropathy. This results in mild multilevel narrowing of the spinal canal. Cervical cord however has a normal appearance. There is no evidence of cord edema. Postcontrast images show no abnormal areas of cortical enhancement. No abnormal intrathecal filling defects are seen. Pre-and paravertebral soft tissue structures are unremarkable. Axial images demonstrate the following: C2-C3: There is no large disc bulge or focal protrusion. There is no significant spinal canal or neuroforaminal stenosis. C3-C4: There is asymmetric left-sided uncovertebral hypertrophy. There is no large disc bulge or focal protrusion. As result, there is minimal narrowing of the left neural foramen. Spinal canal and right neural foramen are unremarkable. C4-C5: There is bilateral uncovertebral hypertrophy with broad-based posterior intervening disc. As result, this results in moderate narrowing of the right neural foramen and minimal narrowing on the left. There is also mild narrowing of spinal canal. C5-C6: There is bilateral uncovertebral hypertrophy with broad-based posterior intervening disc. As a result, there is [id number] narrowing of the right neural foramen and mild narrowing on the left. There is also mild narrowing of the spinal canal. C6-C7: There is bilateral uncovertebral hypertrophy with posterior disc osteophyte complex formation. As a result, there is moderate narrowing of the bilateral neural foramen and [id number] narrowing of the spinal canal. C7-T1: There is no large disc bulge or focal protrusion. There is no significant spinal canal or neuroforaminal stenosis. IMPRESSION: 1. Diffuse scattered areas of abnormal marrow signal with associated abnormal postcontrast enhancement. Findings are consistent with osseous metastatic disease of the cervical spine. 2. No pathologic fracture or dislocation of the cervical spine. 3. Multilevel degenerative changes of the cervical spine greatest at the C4-C5 through C6-C7 levels. Dictated by: Dictated on workstation # [id number]
--- NOTE | 2017-02-01 14:55 | Diagnostic Imaging Report ---
PROCEDURE: CT sinuses without contrast TECHNIQUE: Multiple contiguous axial images were obtained through the sinuses without the use of intravenous contrast. Coronal and sagittal reformations were then performed. INDICATION: Chronic rhinitis. FINDINGS: There is leftward nasal septal deviation and spurring inferiorly. The spur measures a long axis osseous length of 5 mm. Turbinates themselves appear unremarkable. Small polyp versus mucus retention cyst in the right maxillary sinus posteroinferiorly measures 8 mm. The left maxillary sinus is clear. The maxillary sinus ostia are widely patent. The infundibula are unremarkable and unobstructed. The ethmoid air cells are clear. The frontal sinuses are clear, the right somewhat hypoplastic. The partially visualized mastoid air cells reveal no evidence of effusion. The middle ear cavities are unremarkable. No orbital pathology. IMPRESSION: Subcentimeter likely mucus retention cyst in the right maxillary sinus. Leftward nasal septal spurring and deviation. Nasal cavity is otherwise normal. No ostial obstruction, bony destruction, or air-fluid levels. Dictated by: Dictated on workstation # [id number]
== END ==
LOC: RAD 08:58
PROVIDERS: ATTEND Internal Medicine Hematology & Oncology
DX: C79.51 Secondary malignant neoplasm of bone (principal); C50.911 Malignant neoplasm of unspecified site of right female breast; J31.0 Chronic rhinitis; C77.0 Secondary and unspecified malignant neoplasm of lymph nodes of head, face and neck
CPT/HCPCS: 70486; 70490; 72156; A9579

== ENCOUNTER → 2017-02-26 | Outpatient (CLI) | payer BC ==
[2017-02-26 10:52] LABS: BASOPHILS % (AUTO) 1 % (0-2); EOSINOPHILS # (AUTO) 0.1 10^3uL; EOSINOPHILS % (AUTO) 1 % (0-4); LYMPHOCYTES # (AUTO) 1.7 X10^3; MEAN CORPUSCULAR HEMOGLOBIN 30.6 PG (26.0-34.0); MEAN CORPUSCULAR HGB CONC 32.7 g/dL (31.0-37.0); MEAN CORPUSCULAR VOLUME 94 FL (80-100); MEAN PLATELET VOLUME 8.9 FL (6.0-9.5); MONOCYTES # (AUTO) 0.7 X10^3; MONOCYTES % (AUTO) 13 % (3-11); NEUTROPHILS # (AUTO) 2.6 X10^3; NEUTROPHILS % (AUTO) 51 % (51-67); PLATELET COUNT 305 10^3uL (150-450); WHITE BLOOD COUNT 5.06 10^3uL (4.0-11.0)
[2017-02-26 11:16] LABS: ALBUMIN 4.5 g/dL (3.4-5.0); ANION GAP 14.4 MEQ/L (3-15); CALCULATED IONIZED CALCIUM 4.1 mg/dL (3.8-4.6); TOTAL PROTEIN 7.7 g/dL (6.4-8.5)
== END ==
LOC: LAB 10:39
PROVIDERS: ATTEND Internal Medicine Hematology & Oncology
DX: C50.911 Malignant neoplasm of unspecified site of right female breast (principal); C77.0 Secondary and unspecified malignant neoplasm of lymph nodes of head, face and neck; C77.3 Secondary and unspecified malignant neoplasm of axilla and upper limb lymph nodes
CPT/HCPCS: 36415; 80053; 83615; 85025